=== PATIENT | female | born 1935 | race Caucasian/White ===

== ENCOUNTER 2018-12-06 21:28 | Inpatient (IN) | payer MEDICARE, MEDICAID ==
[2018-12-06] MEDS ORDERED: D50W (25GM) Syringe IV ONE (21:35)
--- NOTE | 2018-12-06 21:36 | Emergency Department Report ---
ED General Adult HPI - General Chief complaint: Altered Mental Status Stated complaint: AMS Time Seen by Provider: 12/06/18 21:33 Source: patient, family, EMS (verbal report received from EMS.ems notes not available at time of chart dictation), RN notes reviewed Mode of arrival: Stretcher Limitations: Language Barrier, Physical Limitation - History of Present Illness Initial comments: Patient is accompanied by her daughter. The daughter indicates that she would like to translate for the patient. The patient's primary care doctor is Dr. Marybeth Snow Past medical history includes stroke, residual right-sided deficits, diabetes, hypertension, high cholesterol. Diabetic medication includes glimepiride. The patient is brought to the hospital by EMS for resolved alteration in mental status. As per verbal report from EMS, patient found in bed, not acting normally by family. 911 was contacted. Patient found to be hypoglycemic with a glucose of 25. Patient given glucose in the field. His improved her alterations in mental status. Patient currently in the ER, and family indicates the patient is back to her mental status baseline. As per family, there is no history of fever, trauma, cough, vomiting, diarrhea, urinary symptoms. Patient moving 4 extremities, and as per family, appears to be neurologically at baseline. Patient is somewhat confused, not able to describe exacerbating or relieving factors, qualitative nature of her symptoms. -: Sudden Consistency: now resolved Improves with: medication - Related Data Home Medications Medication Instructions Recorded Confirmed Last Taken Aspirin EC 1 tab PO QDAY 12/06/18 12/06/18 Unknown Benazepril HCl 1 tab PO DAILY 12/06/18 12/06/18 Unknown Carvedilol [Coreg] 12.5 mg PO BID 12/06/18 12/06/18 Unknown Chlorthalidone [Thalitone] 1 tab PO QDAY 12/06/18 12/06/18 Unknown Glimepiride [Amaryl] 1 tab PO QDAY 12/06/18 12/06/18 Unknown Insulin Glargine [Lantus VIAL] 15 units SQ HS 12/06/18 12/06/18 Unknown Megestrol [Megace] 2 tab PO DAILY 12/06/18 12/06/18 Unknown NIFEdipine [Nifedipine ER] 60 mg PO BID 12/06/18 12/06/18 Unknown Oxybutynin [Ditropan] 1 tab PO DAILY 12/06/18 12/06/18 Unknown Simvastatin 1 tab PO QDAY 12/06/18 12/06/18 Unknown Sitagliptin Phosphate [Januvia] 1 tab PO QDAY 12/06/18 12/06/18 Unknown Allergies Allergy/AdvReac Type Severity Reaction Status Date / Time No Known Allergies Allergy Verified 12/06/18 23:46 ED Review of Systems ROS: Stated complaint: AMS Other details as noted in HPI Comment: ros per daughter Constitutional: fever Eyes: denies: eye discharge ENT: denies: epistaxis Respiratory: denies: cough Cardiovascular: denies: syncope Gastrointestinal: denies: nausea, vomiting Genitourinary: denies: frequency Musculoskeletal: denies: back pain Skin: denies: lesions Neurological: confusion Hematological/Lymphatic: denies: easy bleeding ED Past Medical Hx - Past Medical History Previous Medical History?: Yes Hx Hypertension: Yes Hx CVA: Yes (r deficits) Hx Diabetes: Yes Hx Renal Disease: Yes - Surgical History Past Surgical History?: No - Medications Home Medications: Home Medications Medication Instructions Recorded Confirmed Last Taken Type Aspirin EC 1 tab PO QDAY 12/06/18 12/06/18 Unknown History Benazepril HCl 1 tab PO DAILY 12/06/18 12/06/18 Unknown History Carvedilol [Coreg] 12.5 mg PO BID 12/06/18 12/06/18 Unknown History Chlorthalidone [Thalitone] 1 tab PO QDAY 12/06/18 12/06/18 Unknown History Glimepiride [Amaryl] 1 tab PO QDAY 12/06/18 12/06/18 Unknown History Insulin Glargine [Lantus VIAL] 15 units SQ HS 12/06/18 12/06/18 Unknown History Megestrol [Megace] 2 tab PO DAILY 12/06/18 12/06/18 Unknown History NIFEdipine [Nifedipine ER] 60 mg PO BID 12/06/18 12/06/18 Unknown History Oxybutynin [Ditropan] 1 tab PO DAILY 12/06/18 12/06/18 Unknown History Simvastatin 1 tab PO QDAY 12/06/18 12/06/18 Unknown History Sitagliptin Phosphate [Januvia] 1 tab PO QDAY 12/06/18 12/06/18 Unknown History ED Physical Exam - General Limitations: Language Barrier General appearance: alert, anxious - Head Head exam: Present: atraumatic, normocephalic - Eye Eye exam: Present: normal appearance. Absent: nystagmus - ENT ENT exam: Present: normal exam, normal orophraynx, mucous membranes moist, normal external ear exam - Neck Neck exam: Present: normal inspection, full ROM. Absent: tenderness, meningismus - Respiratory Respiratory exam: Present: normal lung sounds bilaterally. Absent: respiratory distress - Cardiovascular Cardiovascular Exam: Present: regular rate, normal rhythm, normal heart sounds. Absent: bradycardia, tachycardia, irregular rhythm, systolic murmur, diastolic murmur, rubs, gallop - GI/Abdominal GI/Abdominal exam: Present: soft. Absent: distended, tenderness, guarding, rebound, rigid, pulsatile mass - Extremities Exam Extremities exam: Present: normal inspection, other (2+ pulses noted in the bilateral upper, lower extremities. Compartments soft. No long bony tenderness. The pelvis is stable.). Absent: calf tenderness - Back Exam Back exam: Present: normal inspection, full ROM. Absent: tenderness, CVA tenderness (R), CVA tenderness (L), paraspinal tenderness, vertebral tenderness - Neurological Exam Neurological exam: Present: alert (family endorses the patient appears to be at baseline. Patient speaking in curyung language to family members. Family members endorse that it is decipherable.), other (there is no facial droop. moving 4 extremities spontaneously. Chronic right-sided arm weakness and leg w eakness. Extraocular movements appear to be intact.) - Psychiatric Psychiatric exam: Present: anxious - Skin Skin exam: Present: warm, dry, intact, normal color. Absent: rash ED Course Vital Signs 12/06/18 12/06/18 12/06/18 21:34 21:37 21:40 Temperature 94.5 F L Pulse Rate 93 H 91 H Respiratory 25 H Rate Blood Pressure 228/86 Blood Pressure 187/93 [Right] 12/06/18 12/06/18 12/06/18 22:30 22:53 23:00 Temperature 98.2 F Pulse Rate 76 63 Respiratory 20 18 Rate Blood Pressure 230/97 224/96 Blood Pressure [Right] 12/07/18 00:05 Temperature Pulse Rate 81 Respiratory Rate Blood Pressure 229/100 Blood Pressure [Right] - Reevaluation(s) Reevaluation #1: 12/06/18 22:55 Differential diagnosis, including but limited to: Hypoglycemia, secondary to medication, secondary to infection, secondary to thyroid derangement, pneumonia, urinary tract infection electrolyte derangement Assessment and plan: 83-year-old female, on glimepiride sulfonylurea antidiabetic medication, with resolved hypoglycemia, also found to be hypothermic. The patient is awake, and family states that she appears to be at baseline. Hypothermia likely multifactorial, likely secondary to environmental exposure, as well as resolving hypoglycemia. We will start the patient on glucose as needed, Accu-Cheks every one hour, initiate IV fluids. Screening laboratory studies have been ordered. Lactic acidosis reviewed and appreciated. Based off of the current history and physical, do not suspect bacteremia at this time. Suspect hypoglycemia secondary to medication. Reevaluation #2: 12/06/18 23:22 Laboratory studies show renal insufficiency. CT scan of the brain negative. Urinalysis not consistent with urinary tract infection. Hospital physician, Dr. Childress accepts patient to the medical service. 12/06/18 23:22 ED Medical Decision Making - Lab Data Result diagrams: 12/06/18 22:49 12/06/18 21:54 Vital Signs 12/06/18 12/06/18 12/06/18 21:34 21:37 21:40 Temperature 94.5 F L Pulse Rate 90 91 H Respiratory 21 Rate Blood Pressure 228/86 Blood Pressure 187/93 [Right] 12/06/18 22:53 Temperature 98.2 F Pulse Rate Respiratory Rate Blood Pressure Blood Pressure [Right] Lab Results 12/06/18 12/06/18 12/06/18 Range/Units 21:54 21:54 21:54 POC Glucose (70-105) Lactic Acid 2.20 H* (0.7-2.0) mmol/L Ammonia 35.0 (25-60) umol/L Total Creatine Kinase 56 (30-135) units/L Troponin T < 0.010 (0.00-0.029) ng/mL TSH (0.270-4.200) mlU/mL Urine Bilirubin (Negative) Urine RBC (Auto) (0.0-6.0) /HPF Acetaminophen (10.0-30.0) ug/mL Plasma/Serum Alcohol (0-0.07) % 12/06/18 12/06/18 12/06/18 Range/Units 21:54 21:54 21:54 POC Glucose (70-105) Lactic Acid (0.7-2.0) mmol/L Ammonia (25-60) umol/L Total Creatine Kinase (30-135) units/L Troponin T (0.00-0.029) ng/mL TSH 3.930 (0.270-4.200) mlU/mL Urine Bilirubin (Negative) Urine RBC (Auto) (0.0-6.0) /HPF Acetaminophen < 5.0 L (10.0-30.0) ug/mL Plasma/Serum Alcohol < 0.01 (0-0.07) % 12/06/18 12/06/18 Range/Units 22:11 22:29 POC Glucose 110 H (70-105) Lactic Acid (0.7-2.0) mmol/L Ammonia (25-60) umol/L Total Creatine Kinase (30-135) units/L Troponin T (0.00-0.029) ng/mL TSH (0.270-4.200) mlU/mL Urine Bilirubin Neg (Negative) Urine RBC (Auto) 2.0 (0.0-6.0) /HPF Acetaminophen (10.0-30.0) ug/mL Plasma/Serum Alcohol (0-0.07) % Labs 12/06/18 12/06/18 12/06/18 21:54 21:54 21:54 WBC RBC Hgb Hct MCV MCH MCHC RDW Plt Count Lymph % (Auto) Barber % (Auto) Eos % (Auto) Baso % (Auto) Lymph # Barber # Eos # Baso # Seg Neutrophils % Seg Neutrophils # Sodium 139 Potassium 4.5 Chloride 107.3 H Carbon Dioxide 19 L Anion Gap 17 BUN 25 H Creatinine 2.0 H Estimated GFR 24 BUN/Creatinine Ratio 13 Glucose 143 H POC Glucose Lactic Acid 2.20 H* Calcium 9.0 Ammonia 35.0 Total Creatine Kinase Troponin T TSH Urine Color Urine Turbidity Urine pH Ur Specific Perry Urine Protein Urine Glucose (UA) Urine Ketones Urine Blood Urine Nitrite Urine Bilirubin Urine Urobilinogen Ur Leukocyte Esterase Urine WBC (Auto) Urine RBC (Auto) Salicylates Acetaminophen Plasma/Serum Alcohol 12/06/18 12/06/18 12/06/18 21:54 21:54 21:54 WBC RBC Hgb Hct MCV MCH MCHC RDW Plt Count Lymph % (Auto) Barber % (Auto) Eos % (Auto) Baso % (Auto) Lymph # Barber # Eos # Baso # Seg Neutrophils % Seg Neutrophils # Sodium Potassium Chloride Carbon Dioxide Anion Gap BUN Creatinine Estimated GFR BUN/Creatinine Ratio Glucose POC Glucose Lactic Acid Calcium Ammonia Total Creatine Kinase 56 Troponin T < 0.010 TSH 3.930 Urine Color Urine Turbidity Urine pH Ur Specific Perry Urine Protein Urine Glucose (UA) Urine Ketones Urine Blood Urine Nitrite Urine Bilirubin Urine Urobilinogen Ur Leukocyte Esterase Urine WBC (Auto) Urine RBC (Auto) Salicylates < 0.3 L Acetaminophen Plasma/Serum Alcohol 12/06/18 12/06/18 12/06/18 21:54 21:54 22:11 WBC RBC Hgb Hct MCV MCH MCHC RDW Plt Count Lymph % (Auto) Barber % (Auto) Eos % (Auto) Baso % (Auto) Lymph # Barber # Eos # Baso # Seg Neutrophils % Seg Neutrophils # Sodium Potassium Chloride Carbon Dioxide Anion Gap BUN Creatinine Estimated GFR BUN/Creatinine Ratio Glucose POC Glucose Lactic Acid Calcium Ammonia Total Creatine Kinase Troponin T TSH Urine Color Straw Urine Turbidity Clear Urine pH 6.0 Ur Specific Perry 1.011 Urine Protein >500 Urine Glucose (UA) 150 Urine Ketones Neg Urine Blood Neg Urine Nitrite Neg Urine Bilirubin Neg Urine Urobilinogen < 2.0 Ur Leukocyte Esterase Neg Urine WBC (Auto) 1.0 Urine RBC (Auto) 2.0 Salicylates Acetaminophen < 5.0 L Plasma/Serum Alcohol < 0.01 12/06/18 12/06/18 12/06/18 22:29 22:49 23:10 WBC 7.1 RBC 3.47 L Hgb 10.7 Hct 32.0 MCV 92 MCH 31 MCHC 33 RDW 16.0 H Plt Count 169 Lymph % (Auto) Telecommunications Project Manager Barber % (Auto) Telecommunications Project Manager Eos % (Auto) Telecommunications Project Manager Baso % (Auto) Telecommunications Project Manager Lymph # Telecommunications Project Manager Barber # Telecommunications Project Manager Eos # Telecommunications Project Manager Baso # Telecommunications Project Manager Seg Neutrophils % Telecommunications Project Manager Seg Neutrophils # Telecommunications Project Manager Sodium Potassium Chloride Carbon Dioxide Anion Gap BUN Creatinine Estimated GFR BUN/Creatinine Ratio Glucose POC Glucose 110 H Lactic Acid 1.60 Calcium Ammonia Total Creatine Kinase Troponin T TSH Urine Color Urine Turbidity Urine pH Ur Specific Perry Urine Protein Urine Glucose (UA) Urine Ketones Urine Blood Urine Nitrite Urine Bilirubin Urine Urobilinogen Ur Leukocyte Esterase Urine WBC (Auto) Urine RBC (Auto) Salicylates Acetaminophen Plasma/Serum Alcohol 12/06/18 23:10 WBC RBC Hgb Hct MCV MCH MCHC RDW Plt Count Lymph % (Auto) Barber % (Auto) Eos % (Auto) Baso % (Auto) Lymph # Barber # Eos # Baso # Seg Neutrophils % Seg Neutrophils # Sodium Potassium Chloride Carbon Dioxide Anion Gap BUN Creatinine Estimated GFR BUN/Creatinine Ratio Glucose POC Glucose 67 L Lactic Acid Calcium Ammonia Total Creatine Kinase Troponin T TSH Urine Color Urine Turbidity Urine pH Ur Specific Perry Urine Protein Urine Glucose (UA) Urine Ketones Urine Blood Urine Nitrite Urine Bilirubin Urine Urobilinogen Ur Leukocyte Esterase Urine WBC (Auto) Urine RBC (Auto) Salicylates Acetaminophen Plasma/Serum Alcohol - EKG Data -: EKG Interpreted by Me EKG shows normal: sinus rhythm Rate: normal - EKG Data When compared to previous EKG there are: previous EKG unavailable - Radiology Data Radiology results: report reviewed, image reviewed X-ray of the chest negative for acute disease. Noncontrast CT scan of the brain is negative for acute disease. Critical care attestation.: If time is entered above; I have spent that time in minutes in the direct care of this critically ill patient, excluding procedure time. ED Disposition Clinical Impression: Renal insufficiency Hypoglycemia secondary to sulfonylurea Qualifiers: Encounter type: initial encounter Injury intent: accidental or unintentional Qualified Code(s): T38.3X1A - Poisoning by insulin and oral hypoglycemic [anti diabetic] drugs, accidental (unintentional), initial encounter Hypothermia Qualifiers: Encounter type: initial encounter Qualified Code(s): T68.XXXA - Hypothermia, initial encounter Disposition: OP ADMIT IP TO THIS HOSP Is pt being admited?: Yes Condition: Fair
--- NOTE | 2018-12-06 22:22 | XRay Report ---
CHEST 1 VIEW INDICATION / CLINICAL INFORMATION: Altered Mental Status. COMPARISON: None available. FINDINGS: SUPPORT DEVICES: None. HEART / MEDIASTINUM: No significant abnormality. LUNGS / PLEURA: No significant pulmonary or pleural abnormality.. No pneumothorax. ADDITIONAL FINDINGS: No significant additional findings. IMPRESSION: 1. No acute findings. Signer Name: Dhaval Scott MD Signed: 12/06/2018 10:18 PM Workstation Name: [id number]
[2018-12-06] MEDS ORDERED: ROCEPHIN/NS 1 GM/50 ML 1 GM/50 ML BAG IV ONE (22:43)
[2018-12-06 22:51] LABS: Bilirubin,Urine NEG (Negative); Blood,Urine NEG (Negative); Color,Urine Straw (Yellow); Urobilinogen,Urine < 2.0 mg/dL (<2.0)
[2018-12-06] MEDS ORDERED: NACL 0.9% 500 ML 500 ML IV ONE (22:55)
[2018-12-06 22:56] LABS: Protein,Urine >500 mg/dL (Negative)
--- NOTE | 2018-12-06 23:07 | Cat Scan Report ---
CT HEAD WITHOUT CONTRAST INDICATION: Altered Mental Status TECHNIQUE: Axial slices were obtained through the head. Coronal and sagittal reformatted images were obtained. COMPARISON: None available. FINDINGS: There is no intracranial hemorrhage or extra-axial fluid collection. Ventricles, basilar cisterns, an d sulci appear within normal limits for age. There is no mass lesion or midline shift. No acute ghulam torial infarct is identified. Calcification is noted in the basal ganglia bilaterally and in the cere bellar white matter. This is nonspecific and is not acute and may be idiopathic, metabolic infectious , inherited. There is atrophy. There is microangiopathy. Bone windows demonstrate no acute osseous ab normality. Paranasal sinuses and mastoid air cells appear clear. TECHNIQUE: All CT scans at this facility use dose modulation, iterative reconstruction, automated ex posure control, weight based dosing, when appropriate, to reduce radiation dose to as low as reasonab ly achievable. IMPRESSION: 1. No acute intracranial abnormality. There is atrophy and microangiopathy. Signer Name: Dhaval Scott MD Signed: 12/06/2018 11:03 PM Workstation Name: [id number]
[2018-12-06 23:32] LABS: Hemoglobin 10.7 gm/dl (10.1-14.3); Mean Corpuscular HGB Conc 33 % (30-34); Mean Corpuscular Volume 92 fl (79-97); Platelet Count 169 K/mm3 (140-440); Red Blood Count 3.47 M/mm3 (3.65-5.03)
--- NOTE | 2018-12-06 23:44 | History and Physical Report ---
History of Present Illness Date of examination: 12/06/18 History of present illness: 83-year-old lady with a history of hypertension, diabetes, chronic kidney disease, CVA was brought to the emergency room for decreased responsiveness. Daughter states that she had very little to eat today, to her diabetic medication. At 6pm and she wanted the pizza, she went to the store, upon returning she found the patient with decreased responsiveness. Blood sugar was 25 and a field. Patient is awake, alert PAST MEDICAL HISTORY:hypertension, diabetes, chronic kidney disease, CVA PAST SURGICAL HISTORY: None SOCIAL HISTORY: Denies alcohol, drugs, tobacco FAMILY HISTORY: Hypertension Medications and Allergies Allergies Allergy/AdvReac Type Severity Reaction Status Date / Time No Known Allergies Allergy Verified 12/06/18 23:46 Home Medications Medication Instructions Recorded Confirmed Last Taken Type Aspirin EC 1 tab PO QDAY 12/06/18 12/06/18 Unknown History Benazepril HCl 1 tab PO DAILY 12/06/18 12/06/18 Unknown History Carvedilol [Coreg] 12.5 mg PO BID 12/06/18 12/06/18 Unknown History Chlorthalidone [Thalitone] 1 tab PO QDAY 12/06/18 12/06/18 Unknown History Glimepiride [Amaryl] 1 tab PO QDAY 12/06/18 12/06/18 Unknown History Insulin Glargine [Lantus VIAL] 15 units SQ HS 12/06/18 12/06/18 Unknown History Megestrol [Megace] 2 tab PO DAILY 12/06/18 12/06/18 Unknown History NIFEdipine [Nifedipine ER] 60 mg PO BID 12/06/18 12/06/18 Unknown History Oxybutynin [Ditropan] 1 tab PO DAILY 12/06/18 12/06/18 Unknown History Simvastatin 1 tab PO QDAY 12/06/18 12/06/18 Unknown History Sitagliptin Phosphate [Januvia] 1 tab PO QDAY 12/06/18 12/06/18 Unknown History Active Meds: Active Medications Dextrose (D50w (25gm) Syringe) 50 ml IV PRN PRN PRN Reason: Hypoglycemia Exam - Physical Exam Narrative exam: General Apperance: The patient lying in bed, breathing comfortable HEENT: Normocephalic, atraumatic. Pupils equally round and reactive to light, EOMI, no sclericterus or JVD or thyromegaly or nodule. , no carotid bruit, mucous membranes moist, no exudate or erythema Heart: S1-S2, regular is rhythm Lungs: Clear to auscultation bilaterally, breathing comfortable Abdomen: Positive bowel sounds, soft, nontender, nondistended, no organomegaly Extremities: No edema cyanosis clubbing Skin: no rash, nodule, warm and dry Neuro: cranial nerves 2-12 intact, speech is fluent, motor/sensory intact - Constitutional Vitals: Temp Pulse Resp BP Pulse Ox 98.2 F 63 18 224/96 12/06/18 22:53 12/06/18 23:00 12/06/18 23:00 12/06/18 23:00 Results - Labs CBC & Chem 7: 12/07/18 04:01 12/07/18 04:01 Labs: Abnormal lab results 12/06/18 12/06/18 12/06/18 Range/Units 21:54 21:54 21:54 RBC (3.65-5.03) M/mm3 RDW (13.2-15.2) % Chloride 107.3 H (98-107) mmol/L Carbon Dioxide 19 L (22-30) mmol/L BUN 25 H (7-17) mg/dL Creatinine 2.0 H (0.7-1.2) mg/dL Glucose 143 H (65-100) mg/dL POC Glucose (70-105) Lactic Acid 2.20 H* (0.7-2.0) mmol/L Salicylates < 0.3 L (2.8-20.0) mg/dL Acetaminophen (10.0-30.0) ug/mL 12/06/18 12/06/18 12/06/18 Range/Units 21:54 22:29 22:49 RBC 3.47 L (3.65-5.03) M/mm3 RDW 16.0 H (13.2-15.2) % Chloride (98-107) mmol/L Carbon Dioxide (22-30) mmol/L BUN (7-17) mg/dL Creatinine (0.7-1.2) mg/dL Glucose (65-100) mg/dL POC Glucose 110 H (70-105) Lactic Acid (0.7-2.0) mmol/L Salicylates (2.8-20.0) mg/dL Acetaminophen < 5.0 L (10.0-30.0) ug/mL 12/06/18 Range/Units 23:10 RBC (3.65-5.03) M/mm3 RDW (13.2-15.2) % Chloride (98-107) mmol/L Carbon Dioxide (22-30) mmol/L BUN (7-17) mg/dL Creatinine (0.7-1.2) mg/dL Glucose (65-100) mg/dL POC Glucose 67 L (70-105) Lactic Acid (0.7-2.0) mmol/L Salicylates (2.8-20.0) mg/dL Acetaminophen (10.0-30.0) ug/mL - Imaging and Cardiology EKG: image reviewed Chest x-ray: image reviewed CT Scan - head: report reviewed Assessment and Plan Assessment Hyperglycemia secondary to diabetic medication Hypertension uncontrolled Chronic kidney disease and history of CVA Plan Admit to medicine Start Gentle IV fluid, monitor fingersticks, hold diabetic medications IV hydralazine as needed for blood pressure control Encourage oral intake DVT prophalaxis
[2018-12-06] MEDS ORDERED: ZOFRAN IV PRN ×2 (23:53)
[2018-12-06] MEDS ORDERED: SODIUM CHLORIDE FLUSH SYRINGE 10 ML IV PRN ×2 (23:53)
[2018-12-06] MEDS ORDERED: TYLENOL PO PRN ×2 (23:53)
[2018-12-07] MEDS: APRESOLINE IV PRN ×2 (00:05→05:40)
[2018-12-07] MEDS ORDERED: APRESOLINE ONE (00:06)
[2018-12-07] MEDS ORDERED: D5/0.45NS 1,000 ML IV ONE (00:17)
[2018-12-07] MEDS: D5/0.45NS 1,000 ML IV SCH ×2 (00:19→22:04)
[2018-12-07] MEDS ORDERED: APRESOLINE IV ONE ×2 (01:17→09:00)
[2018-12-07] MEDS: D50W (25GM) Syringe IV PRN ×2 (03:15→08:30)
[2018-12-07 04:40] LABS: Basophils % (Auto) 0.3 % (0.0-1.8); Eosinophils % (Auto) 0.6 % (0.0-4.3); Hematocrit 29.1 % (30.3-42.9); Hemoglobin 9.9 gm/dl (10.1-14.3); Lymphocytes # (Auto) 1.2 K/mm3 (1.2-5.4); Lymphocytes % (Auto) 13.5 % (13.4-35.0); Mean Corpuscular HGB Conc 34 % (30-34); Mean Corpuscular Volume 91 fl (79-97); Monocytes # (Auto) 0.6 K/mm3 (0.0-0.8); Monocytes % (Auto) 6.5 % (0.0-7.3); Platelet Count 162 K/mm3 (140-440); Red Blood Count 3.21 M/mm3 (3.65-5.03); Red Cell Distribution Width 15.8 % (13.2-15.2)
[2018-12-07 04:53] LABS: Calcium 8.1 mg/dL (8.4-10.2)
[2018-12-07] MEDS: APRESOLINE PO SCH ×3 (08:31→21:57)
[2018-12-07] MEDS ORDERED: SODIUM CHLORIDE FLUSH SYRINGE 10 ML IV SCH (10:00)
[2018-12-07] MEDS ORDERED: SIMVASTATIN PO SCH (10:00)
[2018-12-07] MEDS ORDERED: COREG PO SCH ×2 (10:00)
[2018-12-07] MEDS ORDERED: PNEUMOVAX 23 IM ONE (12:00)
[2018-12-07] MEDS: MEGACE PO SCH (14:23)
[2018-12-07] MEDS: PROCARDIA XL PO SCH ×2 (14:23→21:57)
[2018-12-07] MEDS: HALFPRIN EC PO SCH (14:25)
[2018-12-07] MEDS: DITROPAN PO SCH (14:25)
[2018-12-07] MEDS: THALITONE PO SCH (14:25)
[2018-12-07] MEDS: COREG PO SCH ×2 (14:26→21:57)
[2018-12-07] MEDS: SODIUM CHLORIDE FLUSH SYRINGE 10 ML IV SCH ×2 (14:34→21:58)
[2018-12-07] MEDS: LOVENOX SUB-Q SCH (14:36)
--- NOTE | 2018-12-07 18:18 | Progress Note ---
Assessment and Plan - Patient Problems (1) Hypertensive urgency, malignant Current Visit: Yes Status: Acute Plan to address problem: Patient with malignant hypertension unable to swallow by mouth medications. We'll change medication to IV hydralazine and treat now until swallowing valve complete. Long discussion with family about alternative means of feeding patient and giving medications. (2) Hypoglycemia secondary to sulfonylurea Current Visit: Yes Status: Acute Qualifiers: Encounter type: initial encounter Injury intent: accidental or unintentional Qualified Code(s): T38.3X1A - Poisoning by insulin and oral hypoglycemic [antidiabetic] drugs, accidental (unintentional), initial encounte r; E16.0 - Drug-induced hypoglycemia without coma Plan to address problem: Patient's altered mental status was secondary to sulfonylureas. Accu-Chek of 25 has resolved with discontinuing oral hypoglycemic agents. Will most likely continue Lantus alone insulin alone. Especially Patient cannot swallow. (3) Renal insufficiency Current Visit: Yes Status: Acute Plan to address problem: Patient renal insufficiency most likely multifactorial. Now the top but differential is prerenal azotemia vasomotor nephropathy. We'll gently hydrate patient follow-up chemistry in a.m. (4) History of CVA (cerebrovascular accident) Current Visit: Yes Status: Acute Plan to address problem: A short history of CVA. This is why patient has difficulty swallowing. Family at bedside states it is been happening since the stroke. Has gotten worse. Patient at increased risk for aspiration. After swallowing eval would need to establish with a family wants to continue with an alternative means of feeding (5) Malnutrition Current Visit: Yes Status: Acute Plan to address problem: Patient moderate protein deficiency malnutrition from decreased by mouth intake. Family physician tried to give patient Megace but she cannot swallow so she was hungry and cannot swallow. History Interval history: Patient age 3-year-old history of hypertension diabetes chronic kidney disease CVA presented with altered mental status. Workup in the field Accu-Chek was found to be 25. Patient was on oral hypoglycemic agents plus Lantus and was not eating. Patient according to family has not been eating for quite some time and often chokes showing evidence of aspiration. Patient also family complains of early satiety and which patient only eats several spoonfuls of full and in follow even know the cerebrospinal pupils are full. Patient hospital course complicated by she was unable to swallow pills for diabetes and hypertension today medications had to be changed to oral medicines. Awaiting speech therapy consult. Likely require barium swallow. Hospitalist Physical - Constitutional Vitals: Temp Pulse Resp BP Pulse Ox 98.3 F 81 20 168/66 97 12/07/18 13:18 12/07/18 13:18 12/07/18 13:18 12/07/18 13:18 12/07/18 13:18 General appearance: Present: no acute distress - EENT Eyes: Present: PERRL, EOM intact. Absent: scleral icterus, conjunctival injection, exopthalmos ENT: hearing intact, clear oral mucosa, dentition normal - Neck Neck: Present: supple, normal ROM - Respiratory Respiratory effort: normal Respiratory: bilateral: diminished (poor inspiratory effort.) - Cardiovascular Rhythm: regular - Extremities Extremities: no ischemia, pulses intact, pulses symmetrical, No edema, normal temperature, normal color Peripheral Pulses: within normal limits - Abdominal General gastrointestinal: soft, hypoactive bowel sounds, other (scaphoid abdomen nontender.), no hepatomegaly, no splenomegaly - Integumentary Integumentary: Present: clear, warm, dry - Psychiatric Psychiatric: intact judgment & insight, other (difficult to tell secondary to l anguage barrier door at bedside.) - Neurologic Neurologic: CNII-XII intact, focal deficits, moves all extremities Results - Labs CBC & Chem 7: 12/07/18 04:01 12/07/18 04:01 Labs: Laboratory Last Values WBC 8.9 K/mm3 (4.5-11.0) 12/07/18 04:01 RBC 3.21 M/mm3 (3.65-5.03) L 12/07/18 04:01 Hgb 9.9 gm/dl (10.1-14.3) L 12/07/18 04:01 Hct 29.1 % (30.3-42.9) L 12/07/18 04:01 MCV 91 fl (79-97) 12/07/18 04:01 MCH 31 pg (28-32) 12/07/18 04:01 MCHC 34 % (30-34) 12/07/18 04:01 RDW 15.8 % (13.2-15.2) H 12/07/18 04:01 Plt Count 162 K/mm3 (140-440) 12/07/18 04:01 Lymph % (Auto) 13.5 % (13.4-35.0) 12/07/18 04:01 [place] % (Auto) 6.5 % (0.0-7.3) 12/07/18 04:01 Eos % (Auto) 0.6 % (0.0-4.3) 12/07/18 04:01 Baso % (Auto) 0.3 % (0.0-1.8) 12/07/18 04:01 Lymph # 1.2 K/mm3 (1.2-5.4) 12/07/18 04:01 [place] # 0.6 K/mm3 (0.0-0.8) 12/07/18 04:01 Eos # 0.0 K/mm3 (0.0-0.4) 12/07/18 04:01 Baso # 0.0 K/mm3 (0.0-0.1) 12/07/18 04:01 Seg Neutrophils % 79.1 % (40.0-70.0) H 12/07/18 04:01 Seg Neutrophils # 7.0 K/mm3 (1.8-7.7) 12/07/18 04:01 Sodium 140 mmol/L (137-145) 12/07/18 04:01 Potassium 3.5 mmol/L (3.6-5.0) L D 12/07/18 04:01 Chloride 110.4 mmol/L (98-107) H 12/07/18 04:01 Carbon Dioxide 19 mmol/L (22-30) L 12/07/18 04:01 14 mmol/L 12/07/18 04:01 BUN 21 mg/dL (7-17) H 12/07/18 04:01 2.0 mg/dL (0.7-1.2) H 12/07/18 04:01 Estimated GFR 24 ml/min 12/07/18 04:01 11 % 12/07/18 04:01 Glucose 148 mg/dL (65-100) H 12/07/18 04:01 POC Glucose 132 (70-105) H 12/07/18 16:19 Lactic Acid 1.60 mmol/L (0.7-2.0) 12/06/18 23:10 Calcium 8.1 mg/dL (8.4-10.2) L 12/07/18 04:01 35.0 umol/L (25-60) 12/06/18 21:54 56 units/L (30-135) 12/06/18 21:54 < 0.010 ng/mL (0.00-0.029) 12/06/18 21:54 TSH 3.930 mlU/mL (0.270-4.200) 12/06/18 21:54 Straw (Yellow) 12/06/18 22:11 Clear (Clear) 12/06/18 22:11 6.0 (5.0-7.0) 12/06/18 22:11 Ur Specific [place] 1.011 (1.003-1.030) 12/06/18 22:11 >500 mg/dL (Negative) 12/06/18 22:11 150 mg/dL (Negative) 12/06/18 22:11 Neg mg/dL (Negative) 12/06/18 22:11 Neg (Negative) 12/06/18 22:11 Neg (Negative) 12/06/18 22:11 Neg (Negative) 12/06/18 22:11 < 2.0 mg/dL (<2.0) 12/06/18 22:11 Ur Leukocyte Esterase Neg (Negative) 12/06/18 22:11 1.0 /HPF (0.0-6.0) 12/06/18 22:11 2.0 /HPF (0.0-6.0) 12/06/18 22:11 Salicylates < 0.3 mg/dL (2.8-20.0) L 12/06/18 21:54 Acetaminophen < 5.0 ug/mL (10.0-30.0) L 12/06/18 21:54 Plasma/Serum Alcohol < 0.01 % (0-0.07) 12/06/18 21:54 - Imaging and Cardiology Chest x-ray: image reviewed CT Scan - head: image reviewed Active Medications - Current Medications Current Medications: Generic Name Dose Route Start Last Admin Trade Name Freq PRN Reason Stop Dose Admin Acetaminophen 650 mg 12/06/18 23:53 Tylenol PO Q4H PRN Pain MILD(1-3)/Fever >100.5/HILL Aspirin 81 mg 12/07/18 10:00 12/07/18 14:25 Halfprin Ec PO Not Given QDAY JUANA Carvedilol 25 mg 12/07/18 10:00 12/07/18 14:26 Coreg PO Not Given BID JUANA Chlorthalidone 25 mg 12/07/18 10:00 12/07/18 14:25 Thalitone PO Not Given QDAY JUANA Dextrose 50 ml 12/06/18 21:35 12/07/18 08:30 D50w (25gm) Syringe IV 50 ml PRN PRN Administration Hypoglycemia Enoxaparin Sodium 30 mg 12/07/18 10:00 12/07/18 14:36 Lovenox SUB-Q 30 mg QDAY JUANA Administration Hydralazine HCl 5 mg 12/06/18 23:52 12/07/18 05:40 Apresoline IV 5 mg Q6H PRN Administration Hypertension Hydralazine HCl 25 mg 12/07/18 08:00 12/07/18 14:25 Apresoline PO Not Given Q8HR JUANA Dextrose/Sodium Chloride 1,000 mls @ 50 mls/hr 12/07/18 00:00 12/07/18 00:19 D5/0.45ns IV 50 mls/hr DIRECT JUANA Administration Megestrol Acetate 80 mg 12/07/18 10:00 12/07/18 14:23 Megace PO Not Given DAILY [facility] Nifedipine 60 mg 12/07/18 10:00 12/07/18 14:23 Procardia Xl PO Not Given BID [facility] Ondansetron HCl 4 mg 12/06/18 23:53 Zofran IV Q8H PRN Nausea And Vomiting Oxybutynin Chloride 5 mg 12/07/18 10:00 12/07/18 14:25 Ditropan PO Not Given DAILY [facility] Pravastatin Sodium 80 mg 12/07/18 22:00 Pravachol PO QHS JUANA Sodium Chloride 10 ml 12/07/18 10:00 12/07/18 14:34 Sodium Chloride Flush Syringe 10 Ml IV Not Given BID JUANA Sodium Chloride 10 ml 12/06/18 23:53 Sodium Chloride Flush Syringe 10 Ml IV PRN PRN LINE FLUSH Nutrition/Malnutrition Assess - Dietary Evaluation Nutrition/Malnutrition Findings: Nutrition Notes Start: 12/07/18 14:36 Freq: Status: Active Protocol: Document 12/07/18 14:36 RM (Rec: 07/10/19 14:56 RM [id number]) Nutrition Notes Need for Assessment generated from: MST Initial or Follow up Assessment Current Diagnosis Diabetes,Hypertension Other Pertinent Diagnosis Hx CVA Current Diet No diet ordered Labs/Tests Reviewed Pertinent Medications Reviewed Height 4 ft 3 in Weight 53 kg Usual Body Weight 61.36 kg [place] Body Weight (kg) 25.00 BMI 31.6 Weight change and time frame 13.6% wt loss X 1 year Subjective/Other Information Screened for malnutrition, difficulty chewing, and skin risk. Jet 17 points. Pt and pt daughter in room at time of visit. Only pt daughter speaks Albanian and spoke on behalf of pt. Stated that [employer] pt ate only bites of her meals for the past few months. Admitted to pt coughing when trying to eat. ST came in to room during visit and stated pt will be NPO for possible barium swallow. Pt daughter stated that pt UBW was 130 to 140 lbs 1 year ago. Noted slight temporal wasting. Burn Absent Trauma Absent Minimum of two criteria Yes Energy Intake (non-severe) <75% Estimated Energy Requirement >7 days Muscle Mass Mild Depletion (non-severe) #1 Nutrition Diagnosis Malnutrition Etiology possible swallowing difficulty As Evidenced by Signs and Symptoms pt daughter statement that [employer] pt ate only bites of her meals for the past few months, temporal wasting Is patient on ventilator? No Is Patient Ambulatory and/or Out of Bed No [facility] [phone] Kcal/Kg value to use for calculation 19 Approximate Energy Requirements Using 1007 kcal/Kg Calculation Used for Recommendations Kcal/kg Additional Notes Protein Needs: 31-39g (0.8-1g/ kg 39kg adjBW) Fluid Needs: 1 ml/kcal Nutrition Intervention Change Diet Order: Advance per ST recommendation Goal #[address] recommendation Anticipated Discharge Needs: Unable to determine at this time Follow-Up By: 12/09/18 Additional Comments Follow for ST recommendations, PO intakes
[2018-12-07] MEDS: PRAVACHOL PO SCH (21:57)
[2018-12-07] MEDS ORDERED: NACL 0.9% IV ONE (23:01)
[2018-12-07] MEDS ORDERED: VANCOMYCIN IV ONE (23:01)
[2018-12-08] MEDS ORDERED: NACL 0.9% 250ML 250 ML IV ONE (04:01)
[2018-12-08] MEDS: HALFPRIN EC PO SCH (10:49)
[2018-12-08] MEDS: COREG PO SCH ×3 (10:51→22:05)
[2018-12-08] MEDS: THALITONE PO SCH (10:51)
[2018-12-08] MEDS: DITROPAN PO SCH (10:51)
[2018-12-08] MEDS: LOVENOX SUB-Q SCH (10:51)
[2018-12-08] MEDS: SODIUM CHLORIDE FLUSH SYRINGE 10 ML IV SCH ×2 (10:51→22:05)
[2018-12-08] MEDS: PROCARDIA XL PO SCH ×2 (10:52→22:05)
[2018-12-08] MEDS: MEGACE PO SCH (10:52)
--- NOTE | 2018-12-08 12:44 | Discharge Summary ---
Providers - Providers Date of Admission: 12/06/18 23:44 Date of discharge: 12/08/18 Attending physician: JAYNE TORRE 12/07/18 12:03 Physical Therapy Evaluation and Treat [CONS] Routine Comment: Reason For Exam: Weakness 12/08/18 08:39 Speech Therapy Evaluation and Treat [CONS] Urgent Reason For Exam: dysphagia Primary care physician: MARY HARDIN Hospitalization Condition: Fair Pertinent studies: swallowing evalu normal Hospital course: History of present with acute encephalopathy secondary to hypoglycemia. Family at the bedside stated patient would not eat and had difficulty with different meals. And only ate small meals. Patient stated she just did not have appetite. Primary care physician Dr. Wade has been aware an attempted Megace to stimulate patient's appetite. Family states she still will eat small bites of potatoes and will come back for hours later and finish a meal. Patient passed swallow eval via speech therapy recommended neck is thick liquids and soft diet. She is stable to be discharged. I had a long discussion with the family as to why patient may not be eating. Possibilities were the onset of dementia. Family also has been made aware that the patient just does not eat and continues to get worse and other option would be PEG tube placement and GI consult. Disposition: DC-01 TO HOME OR SELFCARE - Discharge Diagnoses (1) Hypertensive urgency, malignant Status: Resolved Comment: Resolved with the resolution of antihypertensive medications. (2) Hypoglycemia secondary to sulfonylurea Status: Acute Qualifiers: Encounter type: initial encounter Injury intent: accidental or unintentional Qualified Code(s): T38.3X1A - Poisoning by insulin and oral hypoglycemic [antidiabetic] drugs, accidental (unintentional), initial encounter; E16.0 - Drug-induced hypoglycemia without coma Comment: Hypoglycemia will discontinue Amaryl continue Januvia as well as long- acting insulin. This is most likely etiology. Especially since patient is not eating well. (3) Renal insufficiency Status: Acute (4) History of CVA (cerebrovascular accident) Status: Chronic (5) Malnutrition Status: Acute Comment: Malnutrition secondary to decreased by mouth intake. Patient passed swallow eval will continue Megace. Core Measure Documentation - Palliative Care Palliative Care/ Comfort Measures: Not Applicable - Core Measures Any of the following diagnoses?: none Exam - Constitutional Vitals: Temp Pulse Resp BP Pulse Ox 98.3 F 62 20 112/48 96 12/08/18 07:36 12/08/18 08:14 12/08/18 07:36 12/08/18 07:36 12/08/18 08:14 Plan Activity: no restrictions, up only with assistance Weight Bearing Status: Weight Bear as Tolerated Diet: diabetic Special Instructions: record blood sugar diary Follow up with: AMRY HARDIN MD [Primary Care Provider] - 3-5 Days Prescriptions: Carvedilol [Coreg] 25 mg PO BID #60 tablet
[2018-12-08] MEDS: APRESOLINE PO SCH ×3 (15:59→22:04)
[2018-12-08] MEDS ORDERED: D50W (25GM) Syringe IV PRN (18:44)
[2018-12-08] MEDS: D5/0.45NS 1,000 ML IV SCH (19:47)
[2018-12-08] MEDS: HumaLOG SUB-Q SCH (19:48)
[2018-12-08] MEDS: PRAVACHOL PO SCH (21:55)
[2018-12-08] MEDS ORDERED: NACL 0.9% 1000 ML 1,000 ML IV SCH (22:00)
[2018-12-09] MEDS: HumaLOG SUB-Q SCH ×3 (00:45→12:43)
[2018-12-09] MEDS: APRESOLINE PO SCH ×2 (05:09→15:03)
--- NOTE | 2018-12-09 07:56 | Discharge Summary ---
Providers - Providers Date of Admission: 12/06/18 23:44 Attending physician: ERIC CARMONA MD 12/07/18 12:03 Physical Therapy Evaluation and Treat [CONS] Routine Comment: Reason For Exam: Weakness 12/08/18 08:39 Speech Therapy Evaluation and Treat [CONS] Urgent Reason For Exam: dysphagia Primary care physician: MARY HARDIN Hospitalization Reason for admission: Hypoglycemia Condition: Fair Hospital course: History of present with acute encephalopathy secondary to hypoglycemia. Family at the bedside stated patient would not eat and had difficulty with different meals. And only ate small meals. Patient stated she just did not have appetite. Primary care physician Dr. Wade has been aware an attempted Megace to stimulate patient's appetite. Family states she still will eat small bites of potatoes and will come back for hours later and finish a meal. Patient passed swallow eval via speech therapy recommended neck is thick liquids and soft diet. She is stable to be discharged. My colleague had a long discussion with the family as to why patient may not be eating. Possibilities were the onset of dementia. Family also has been made aware that the patient just does not eat and continues to get worse and other option would be PEG tube placement and GI consult. Patient discharge was held when this blood culture grew gram-positive cocci. On further evaluation and came back as squamous negative staph which is likely a contaminant. Patient was febrile with no WBCs noted. Specimen discussions were had with the family and patient about hypoglycemic episodes as this is recurrent admission for this patient. Prognosis remains poor considering her current readmission for similar reasons. THE LINE AND DEMENTIA WHICH AT THIS POINT MAY BE WORSENING. PATIENT'S RISK FOR MULTIPLE READMISSION. Disposition: DC-01 TO HOME OR SELFCARE - Discharge Diagnoses (1) Hypertensive urgency, malignant Status: Resolved Comment: Resolved with the resolution of antihypertensive medications. (2) Hypoglycemia secondary to sulfonylurea Status: Acute Qualifiers: Encounter type: initial encounter Injury intent: accidental or unintentional Qualified Code(s): T38.3X1A - Poisoning by insulin and oral hypoglycemic [antidiabetic] drugs, accidental (unintentional), initial encounter; E16.0 - Drug-induced hypoglycemia without coma Comment: Hypoglycemia will discontinue Amaryl continue Januvia as well as long- acting insulin. This is most likely etiology. Especially since patient is not eating well. (3) Renal insufficiency Status: Acute (4) History of CVA (cerebrovascular accident) Status: Chronic (5) Malnutrition Status: Acute Comment: Malnutrition secondary to decreased by mouth intake. Patient passed swallow eval will continue Megace. Disposition: DC-01 TO HOME OR SELFCARE Time spent for discharge: 35 MINS Core Measure Documentation - Palliative Care Palliative Care/ Comfort Measures: Not Applicable - Core Measures Any of the following diagnoses?: none Exam - Physical Exam Narrative exam: General appearance: Present: no acute distress, FRAIL, ELDERLY - EENT Eyes: Present: PERRL, EOM intact. Absent: scleral icterus, conjunctival injection, exopthalmos ENT: hearing intact, clear oral mucosa, dentition normal - Neck Neck: Present: supple, normal ROM - Respiratory Respiratory effort: normal Respiratory: bilateral: diminished (poor inspiratory effort.) - Cardiovascular Rhythm: regular - Extremities Extremities: no ischemia, pulses intact, pulses symmetrical, No edema, normal temperature, normal color Peripheral Pulses: within normal limits - Abdominal General gastrointestinal: soft, hypoactive bowel sounds, other (scaphoid abdomen nontender.), no hepatomegaly, no splenomegaly - Integumentary Integumentary: Present: clear, warm, dry - Psychiatric Psychiatric: intact judgment & insight, other (difficult to tell secondary to language barrier door at bedside.) - Neurologic Neurologic: CNII-XII intact, focal deficits, moves all extremities - Constitutional Vitals: Temp Pulse Resp BP Pulse Ox 98.6 F 71 20 143/49 96 12/09/18 07:23 12/09/18 07:23 12/09/18 07:23 12/09/18 07:23 12/09/18 07:23 Plan Activity: advance as tolerated, fall precautions Diet: diabetic Special Instructions: record daily weights, record daily BP diary Durable Medical Equipment Needed Upon Discharge: Wheelchair, Hospital Bed Follow up with: MARY HARDIN MD [Primary Care Provider] - 3-5 Days Prescriptions: Carvedilol [Coreg] 25 mg PO BID #60 tablet
[2018-12-09] MEDS: LOVENOX SUB-Q SCH (09:21)
[2018-12-09] MEDS: DITROPAN PO SCH (09:22)
[2018-12-09] MEDS: COREG PO SCH (09:22)
[2018-12-09] MEDS: MEGACE PO SCH (09:23)
[2018-12-09] MEDS: HALFPRIN EC PO SCH (09:24)
[2018-12-09] MEDS: SODIUM CHLORIDE FLUSH SYRINGE 10 ML IV SCH (09:24)
[2018-12-09] MEDS: THALITONE PO SCH (11:37)
[2018-12-09] MEDS: PROCARDIA XL PO SCH (11:37)
[2018-12-09 14:40] VITALS: BP 145/61
== END 2018-12-09 15:15 | disposition home or self-care (01) | DRG 682 ==
LOC: ED 21:28 → 2B-ACE 23:44
PROVIDERS: ADMIT Internal Medicine; ATTEND Internal Medicine
PROC: 3E0234Z Introduction of Serum, Toxoid and Vaccine into Muscle, Percutaneous Approach (ICD-10-PCS; principal; 2018-12-07)
DX: N17.0 Acute kidney failure with tubular necrosis (principal); E43 Unspecified severe protein-calorie malnutrition; G93.49 Other encephalopathy; I69.351 Hemiplegia and hemiparesis following cerebral infarction affecting right dominant side; E11.649 Type 2 diabetes mellitus with hypoglycemia without coma; E11.65 Type 2 diabetes mellitus with hyperglycemia; I12.9 Hypertensive chronic kidney disease with stage 1 through stage 4 chronic kidney disease, or unspecified chronic kidney disease; R68.0 Hypothermia, not associated with low environmental temperature; I16.0 Hypertensive urgency; E11.22 Type 2 diabetes mellitus with diabetic chronic kidney disease; T38.3X5A Adverse effect of insulin and oral hypoglycemic [antidiabetic] drugs, initial encounter; N18.9 Chronic kidney disease, unspecified; E78.00 Pure hypercholesterolemia, unspecified; Z23 Encounter for immunization; Z68.31 Body mass index [BMI] 31.0-31.9, adult; Z82.49 Family history of ischemic heart disease and other diseases of the circulatory system; Z79.82 Long term (current) use of aspirin; Z79.899 Other long term (current) drug therapy; Y92.098 Other place in other non-institutional residence as the place of occurrence of the external cause; Z79.84 Long term (current) use of oral hypoglycemic drugs; Z79.4 Long term (current) use of insulin
CPT/HCPCS: 36415; 70450; 71045; 80048; 80320; 81001; 82140; 82550; 82962; 84443; 84484; 85025; 87040; 87076; 87086; 87186; 90471; 90732; 93005; 93010; G0378; A9270-GY; G0009; G0480; J0360; J0696; J1650; J1815; J3370; J7030; J7040; J7050